=== PATIENT | male | born 1985 | race Caucasian/White ===

== ENCOUNTER 2018-01-07 14:19 | Inpatient (IN) | payer MEDICAID, SELFPAY ==
[2018-01-07 14:20] VITALS: BP 176/94; PULSE 103; RESP 16; TEMP 36.3; O2SAT 97; BMI 33.3
--- NOTE | 2018-01-07 14:39 | ED.VISSUMM ---
- ER Visit Summary Date of Service: 01/07/18 Chief Complaint: Repeat requesting detox for alcohol abuse History of Present Illness: The patient is a 32 M patient has a long-standing history of alcoholism. States he drinks about a pint of rum per day. And is requesting detox. He denies any hematemesis or melena. No other significant past medical history other than depression. Physical Examination: Well-appearing young male. Vital signs are stable afebrile. Heart rate 103. He does not look septic or toxic. H EENT exam unremarkable. Neck nontender. Lungs clear to auscultation bilaterally. Heart rhythm rate about 103 no murmur. Chest wall nontender. Abdomen soft, nontender nondistended normal bowel sounds no peritoneal signs. Moving all 4 extremities. Neurovascularly intact. Back nontender. Neurologically is awake and alert without focal motor deficits. Test Results: None Emergency Department Course and Treatment: I spoke to [facility] personnel they are coming down to evaluate the patient for admission. Treatment Plan: [] Disposition: Admission for detox Impression: Requesting detox for alcoholism This note was generated with [employer] dictation software. It may contain incorrect words, spelling, and punctuation that were not noted in review of the chart prior to signing ED Disposition - Plan for ED Patient: Chief Complaint: Subst Abuse Referrals: Vlad Leyva MD [Primary Care Provider] -
--- NOTE | 2018-01-07 14:45 | ED.DCSUM_ITS ---
- ER Visit Summary Date of Service: 01/07/18 Chief Complaint: Repeat requesting detox for alcohol abuse History of Present Illness: The patient is a 32 M patient has a long-standing history of alcoholism. States he drinks about a pint of rum per day. And is requesting detox. He denies any hematemesis or melena. No other significant past medical history other than depression. Physical Examination: Well-appearing young male. Vital signs are stable afebrile. Heart rate 103. He does not look septic or toxic. H EENT exam unremarkable. Neck nontender. Lungs clear to auscultation bilaterally. Heart rhythm rate about 103 no murmur. Chest wall nontender. Abdomen soft, nontender nondistended normal bowel sounds no peritoneal signs. Moving all 4 extremities. Neurovascularly intact. Back nontender. Neurologically is awake and alert without focal motor deficits. Test Results: None Emergency Department Course and Treatment: I spoke to [facility] personnel they are coming down to evaluate the patient for admission. Treatment Plan: [] Disposition: Admission for detox Impression: Requesting detox for alcoholism This note was generated with [employer] dictation software. It may contain incorrect words, spelling, and punctuation that were not noted in review of the chart prior to signing ED Disposition - Plan for ED Patient: Chief Complaint: Subst Abuse Referrals: Vlad Leyva MD [Primary Care Provider] -
[2018-01-07 15:10] VITALS: BMI 33.3
--- NOTE | 2018-01-07 15:32 | PCM.HP.STD ---
Problem List (1) Alcohol use disorder Status: Acute (2) Alcohol withdrawal Status: Acute History of Present Illness Date of Admission: 01/07/18 Chief Complaint: symptoms of alcohol withdrawal The patient is a 32 year old M history of alcohol use disorder, he drinks rum on a daily basis, affecting his life and he wants to stop alcohol completely. He last drank alcohol about 4 hours ago, is beginning to have symptoms of withdrawal with tremors anxiety restlessness and nausea. The patient denies use of illicit drugs. We are placing him in the hospital for medical stabilization of his symptom complex of alcohol withdrawal. Past Medical History Allergies No Known Allergies Allergy (Verified 04/01/14 13:40) Home Medications: Ambulatory Orders Medication Instructions Recorded Citalopram [Celexa] 20 mg PO DAILY 01/07/18 Surgical History: no surgical history Smoking Status: Current every day smoker Review of Systems Comment: All Systems were reviewed with pertinent positives mentioned in the HPI above. VTE Information - Inpt Only VTE Present on Admission: No VTE Mechan Device Prophylaxis: SCD's VTE Pharm Prophylaxis ordered?: No - Physical Exam General: Alert, Oriented x3 HEENT: Atraumatic Oral: Moist Mucosa Neck: Supple, No JVD Lungs: Clear to auscultation Cardiovascular: Regular rate, Normal S1, Normal S2 Abdomen: Bowel Sounds Present, Soft, Non Tender, Non-Distended Extremities: No edema Neurological: Cranial nerves II-XII grossly intact, Deep Tendon Reflexes 2+/4 and Symmetrical, Motor Exam 5/5 strength throughout Vital Signs Temp Pulse Resp BP Pulse Ox 97.4 F L 103 H 16 176/94 H 97 01/07/18 14:20 01/07/18 14:20 01/07/18 14:20 01/07/18 14:20 01/07/18 14:20 Oxygen Delivery Method Room Air Weight: 105.233 kg Body Mass Index (BMI) 33.3 Assessment/Plan 1. Early alcohol withdrawal; the patient will be placed on the [facility] medical stabilization protocol for alcohol withdrawal and we will continue to monitor him. closely. 2. alcohol Use disorder; the patient is recommended to follow-up for outpatient alcohol rehabilitation program after his discharge. 3. History of depressive disorder; he is on Celexa which we will continue. 4. Early ambulation for prophylaxis Code Visit Inpatient E&M: 32100 Init Hosp L2
[2018-01-07 16:19] VITALS: BP 156/92; PULSE 83; RESP 20; TEMP 36.9; O2SAT 96
[2018-01-07 16:21] VITALS: BMI 33.1
[2018-01-07 16:35] VITALS: BP 156/92; PULSE 83; RESP 20; TEMP 36.9; O2SAT 96
[2018-01-07] MEDS: QUEtiapine 25 MG Tablet PO (16:43)
[2018-01-07] MEDS: LORazepam 1 MG Tablet PO ×2 (16:43→20:54)
[2018-01-07 17:17] LABS: ALB/GLOB Ratio 1.2 RATIO (0.9-2.4); AST(SGOT) 31 U/L (15-37); Alanine Aminotransfer ALT/SGPT 40 U/L (16-61); Albumin, Serum 3.8 g/dL (3.2-5.0); Alkaline Phosphatase 48 U/L (45-117); Anion Gap 9 (5-15); BUN 21 mg/dL (7-18); BUN/Creat Ratio 18.4 RATIO (10-20); Calcium,Total 8.4 mg/dL (8.5-10.1); Chloride 110 mmol/L (98-107); Creatinine, Serum 1.14 mg/dL (0.70-1.30); EST Glomerular Filtration Rate 79 mL/min (>60); Est Glom Filt Rate - Afr Amer 96 mL/min (>60); Estimated Creatinine Clearance 96.94 ml/min; Globulin 3.2 g/dL (2.2-4.2); Glucose 98 mg/dL (74-106); Potassium 3.9 mmol/L (3.5-5.1); Sodium Level 141 mmol/L (136-145)
[2018-01-07] MEDS: cloNIDine HCl 0.1 MG Tablet PO ×2 (18:06→20:54)
[2018-01-07 20:50] VITALS: BP 149/83; PULSE 98; RESP 16; TEMP 36.5; O2SAT 96
[2018-01-07] MEDS: traZODone 50 MG Tablet PO (20:55)
[2018-01-08] VITALS (8 sets, daily range): BP systolic 110–154; BP diastolic 74–96; PULSE 61–79; RESP 16; TEMP 36.2–36.9; O2SAT 98–99
[2018-01-08] MEDS: cloNIDine HCl 0.1 MG Tablet PO ×5 (00:40→17:34)
[2018-01-08] MEDS: LORazepam 1 MG Tablet PO ×5 (00:40→17:34)
[2018-01-08] MEDS: Dicyclomine 10 MG Capsule 20 MG PO (00:40)
--- NOTE | 2018-01-08 07:44 | PCM.PROGNOTE ---
Subjective: Patient is a 32-year-old male with a past medical history of alcoholism, tobacco dependence and anxiety/depression who presented to the ED at [facility] on 01/07/2018 requesting inpatient admission for medical stabilization for alcohol withdrawal. Blood pressure at admission was 176/94. Heart rate was 103 and he was tremulous and c/o nausea. Alcohol level at admission was 103. LFTs were unremarkable. He has been to [facility] and to [facility]. He is a single parent now but gets support from his grandparents. Has never been to an in-pt rehab program. He is currently employed and his work is aware that he is at an alcohol rehab facility. He has 2 children and they are currently with the grandparents. He and his previously were both abusing narcotics in pill form and then he found her in bed with a co-worker 2 years ago and they are now . He still has a lot of anger associated with this. She has now moved on to heroin. He denies any narcotic use currently. Thinks he will go OP at [place], maybe with [facility] or [facility]. Mother and father were both drinkers Admits to feeling depressed....uses alcohol as an escape - Physical Exam General: Alert, Oriented x3, Cooperative, No apparent distress HEENT: Atraumatic, PERRLA, EOMI Oral: Moist Mucosa Neck: Supple, No Nodes, No Nuchal Rigidity Lungs: Clear to auscultation, Normal air movement Cardiovascular: Regular rate, No murmurs Abdomen: Bowel Sounds Present, Soft, Non Tender Extremities: No edema, Capillary Refill Less than 3 Seconds Skin: No rashes, No breakdown Musculoskeletal: No Tenderness to Palpation of Joints or Extremities Neurological: Cranial nerves II-XII grossly intact Psych/Mental Status: Flat Affect - but, makes good eye contact, no suicidal or homicidal ideation. Vital Signs Temp Pulse Resp BP Pulse Ox 97.2 F L 61 16 110/74 96 01/08/18 05:03 01/08/18 05:03 01/08/18 05:03 01/08/18 05:03 01/07/18 20:50 Oxygen Delivery Method Room Air Weight: 231 lb 1.6 oz Body Mass Index (BMI) 33.1 Laboratory Tests Past 24 Hrs 01/07/18 01/07/18 16:33 16:33 Sodium 141 Potassium 3.9 Chloride 110 H Carbon Dioxide 22.0 Anion Gap 9 BUN 21 H Creatinine 1.14 Estim Creat Clear Calc 96.94 Est GFR (MDRD) Af Amer 96 Est GFR (MDRD) Non-Af 79 BUN/Creatinine Ratio 18.4 Glucose 98 Calcium 8.4 L Total Bilirubin 0.30 AST 31 ALT 40 Alkaline Phosphatase 48 Total Protein 7.0 Albumin 3.8 Globulin 3.2 Albumin/Globulin Ratio 1.2 Ethyl Alcohol 103.0 Medical Necessity - Tobacco Use Smoking Status: Current every day smoker Assessment/Plan Impressions 1. acute alcohol withdrawal 2. depression - has not taken the Celexa he was prescribed by his PCP last week.....states he is afraid....but, agreeable to trying it in the hospital 3. hx of opiate abuse in the past....denies now Continue the [facility] protocol for acute alcohol withdrawal Start Celexa 20 mg p.o. daily today Consult behavioral health for options for counseling for severe depression Code Visit Inpatient E&M: 18127 Subs Hosp L2
--- NOTE | 2018-01-08 07:48 | PN_ITS ---
Subjective: Patient is a 32-year-old male with a past medical history of alcoholism, tobacco dependence and anxiety/depression who presented to the ED at [facility] on 01/07/2018 requesting inpatient admission for medical stabilization for alcohol withdrawal. Blood pressure at admission was 176/94. Heart rate was 103 and he was tremulous and c/o nausea. Alcohol level at admission was 103. LFTs were unremarkable. He has been to [facility] and to [facility]. He is a single parent now but gets support from his grandparents. Has never been to an in-pt rehab program. He is currently employed and his work is aware that he is at an alcohol rehab facility. He has 2 children and they are currently with the grandparents. He and his previously were both abusing narcotics in pill form and then he found her in bed with a co-worker 2 years ago and they are now . He still has a lot of anger associated with this. She has now moved on to heroin. He denies any narcotic use currently. Thinks he will go OP at [place], maybe with [facility] or [facility]. Mother and father were both drinkers Admits to feeling depressed....uses alcohol as an escape - Physical Exam General: Alert, Oriented x3, Cooperative, No apparent distress HEENT: Atraumatic, PERRLA, EOMI Oral: Moist Mucosa Neck: Supple, No Nodes, No Nuchal Rigidity Lungs: Clear to auscultation, Normal air movement Cardiovascular: Regular rate, No murmurs Abdomen: Bowel Sounds Present, Soft, Non Tender Extremities: No edema, Capillary Refill Less than 3 Seconds Skin: No rashes, No breakdown Musculoskeletal: No Tenderness to Palpation of Joints or Extremities Neurological: Cranial nerves II-XII grossly intact Psych/Mental Status: Flat Affect - but, makes good eye contact, no suicidal or homicidal ideation. Vital Signs Temp Pulse Resp BP Pulse Ox 97.2 F L 61 16 110/74 96 01/08/18 05:03 01/08/18 05:03 01/08/18 05:03 01/08/18 05:03 01/07/18 20:50 Oxygen Delivery Method Room Air Weight: 231 lb 1.6 oz Body Mass Index (BMI) 33.1 Laboratory Tests Past 24 Hrs 01/07/18 01/07/18 16:33 16:33 Sodium 141 Potassium 3.9 Chloride 110 H Carbon Dioxide 22.0 Anion Gap 9 BUN 21 H Creatinine 1.14 Estim Creat Clear Calc 96.94 Est GFR (MDRD) Af Amer 96 Est GFR (MDRD) Non-Af 79 BUN/Creatinine Ratio 18.4 Glucose 98 Calcium 8.4 L Total Bilirubin 0.30 AST 31 ALT 40 Alkaline Phosphatase 48 Total Protein 7.0 Albumin 3.8 Globulin 3.2 Albumin/Globulin Ratio 1.2 Ethyl Alcohol 103.0 Medical Necessity - Tobacco Use Smoking Status: Current every day smoker Assessment/Plan Impressions 1. acute alcohol withdrawal 2. depression - has not taken the Celexa he was prescribed by his PCP last week.....states he is afraid....but, agreeable to trying it in the hospital 3. hx of opiate abuse in the past....denies now Continue the [facility] protocol for acute alcohol withdrawal Start Celexa 20 mg p.o. daily today Consult behavioral health for options for counseling for severe depression Code Visit Inpatient E&M: 32938 Subs Hosp L2
[2018-01-08] MEDS: Folic Acid 1 MG Tablet PO (09:37)
[2018-01-08] MEDS: Thiamine Hydrochloride 100 MG Tablet PO (09:37)
[2018-01-08] MEDS: Multivitamins,Ther W-Minerals Tablet 1 TABLET PO (09:37)
[2018-01-08] MEDS: Citalopram 20 MG Tablet PO (09:47)
--- NOTE | 2018-01-08 11:07 | BH.NOTE ---
BH: Inpatient Note - Notes Behavioral Health Inpatient Note: 01/08/18 11:07 Referral to [facility] due to depression and anxiety. Met with pt in his room. Cooperative and pleasant. Denies any suicidal ideations, plan, or intent. No hx of suicide attempts or psychiatric admissions. [facility]mitted into the [facility] due to alcohol use disorder. Pt reports drinking on average a fifth of liquor daily for the past two years and would experience withdrawal symptoms. Admits that he would drink to self-medicate for depression, stress, and anxiety. Is currently linked with a therapist at [facility] and [facility]. Was recently started on Celexa for depression through PCP. Appears motivated for change. We discussed outpatient options at discharge. He is hesitant to participate in any type of group counseling however reports a plan to follow up with [facility] in [place] for group counseling. I'm unfamiliar with what substance abuse program he is discussing and its structure as [facility] does not have substance abuse groups. We discussed IOP treatment at [facility] as due to chronic significant use, limited sobriety, and limited relapse prevention skills an SA IOP would most likely be most beneficial however he prefers to stay closer to his house. Encouraged him to pursue IOP at discharge as well as follow up with his individual counselor. Left message with [facility] regarding consultation. 01/08/18 11:18 01/08/18 11:34
--- NOTE | 2018-01-08 22:48 | NURSING ---
See papercharting for MAR. HS meds given at 2130.
[2018-01-09] VITALS (7 sets, daily range): BP systolic 120–150; BP diastolic 74–91; PULSE 65–79; RESP 14–18; TEMP 36.5–37.1; O2SAT 95–98
[2018-01-09] MEDS: LORazepam 1 MG Tablet PO ×4 (00:17→20:27)
[2018-01-09] MEDS: cloNIDine HCl 0.1 MG Tablet PO ×5 (05:38→23:11)
--- NOTE | 2018-01-09 06:51 | PCM.PROGNOTE ---
Subjective: Afebrile, blood pressure mildly elevated, not tachycardic, not diaphoretic Admitted to that he is drinking a fifth a day rather than a pint(what he told me) and this has been ongoing for the past 2 years. Reviewed the consult from . Admitted to me today that prior to abusing alcohol he abused Percocet, Vicodin, Dilaudid tablets. He denies any intravenous drug use ever. He is considering going to an inpatient facility however wants to be discharged home to see his children. States he slept well last night. Denies nausea, tremulousness, restless leg, hallucinations. Objective: - Physical Exam General: Alert, Oriented x3, Cooperative, No apparent distress HEENT: Atraumatic, PERRLA, EOMI Oral: Moist Mucosa Neck: Supple, No Nodes, No Nuchal Rigidity Lungs: Clear to auscultation, Normal air movement Cardiovascular: Regular rate, No murmurs Abdomen: Bowel Sounds Present, Soft, Non Tender Extremities: No edema, Capillary Refill Less than 3 Seconds Skin: No rashes, No breakdown Musculoskeletal: No Tenderness to Palpation of Joints or Extremities Neurological: Cranial nerves II-XII grossly intact Psych/Mental Status: Flat Affect - but, makes good eye contact, no suicidal or homicidal ideation. More forthcoming today - Physical Exam Vital Signs Temp Pulse Resp BP Pulse Ox 97.7 F L 65 14 120/74 98 01/09/18 05:32 01/09/18 05:32 01/09/18 05:32 01/09/18 05:32 01/08/18 21:20 Oxygen Delivery Method Room Air Weight: 231 lb 1.6 oz Body Mass Index (BMI) 33.1 Intake and Output for Last 24 Hours 01/07/18 01/08/18 01/09/18 23:59 23:59 23:59 Intake Total 360 / 360 Balance 360 / 360 Medical Necessity - Tobacco Use Smoking Status: Current every day smoker Assessment/Plan Impressions 1. acute alcohol withdrawal 2. depression - has not taken the Celexa he was prescribed by his PCP last week.....states he is afraid....but, agreeable to trying it in the hospital. No adverse effects with the Celexa 3. hx of opiate abuse in the past....denies now Continue the [facility] protocol for acute alcohol withdrawal Continue Celexa 20 mg p.o. daily today Will provide him with a RX for Trazodone to help him sleep at night until the Celexa has a chance to kick in Plan on DC tomorrow Code Visit Inpatient E&M: 94841 Subs Hosp L2
[2018-01-09] MEDS: Multivitamins,Ther W-Minerals Tablet 1 TABLET PO (08:56)
[2018-01-09] MEDS: Thiamine Hydrochloride 100 MG Tablet PO (08:56)
[2018-01-09] MEDS: Folic Acid 1 MG Tablet PO (08:56)
[2018-01-09] MEDS: Citalopram 20 MG Tablet PO (09:33)
[2018-01-09] MEDS: Ibuprofen 600 MG Tablet PO (20:34)
[2018-01-09] MEDS: traZODone 100 MG Tablet PO (23:09)
[2018-01-10] VITALS (7 sets, daily range): BP systolic 106–139; BP diastolic 65–89; PULSE 59–88; RESP 12–18; TEMP 35.6–36.8; O2SAT 94–99
[2018-01-10] MEDS: LORazepam 1 MG Tablet PO ×2 (04:25→11:59)
--- NOTE | 2018-01-10 06:46 | NURSING ---
Reviewed Kimberly Bates RN charting.
--- NOTE | 2018-01-10 06:48 | PCM.DC ---
You will use the following diet at home:: No restrictions Your food should be the consistency of: Regular Your liquids should be the consistency of: Regular/Thin Discharge Activity: Return to Normal Activity Call your doctor if you observe: Fever of 101 or Higher Instructions: Why Do You Smoke?, Getting Support for Quitting Smoking, Depression Affects Your Mind and Body, What Can Cause Depression?, Depression: Tips to Help Yourself, Know the Signs and Symptoms of Depression, Using Antidepressants Additional Instructions: I think it is very important to get your anxiety and depression under control. Anxiety and depressions make you feel terrible and when you feel terrible you reach for ANYTHING that will comfort you and turn your brain off,,,,,for you this is alcohol. You have tolerated the Celexa OK in the hospital so I hope that you continue taking it. It sometimes takes 3-4 weeks to get the full effect of antidepressants like Celexa. Celexa is a SSRI. I am giving you some literature about taking antidepressants. I am also giving you a prescription for Trazodone to help you sleep at night until the Celexa kicks in. Trazodone is an antidepressant we frequently use only at night because one of the side effects is to make you sleepy and IT IS not ADDICTIVE. Good luck to you. I applaud your efforts to try and get healthy for both you and your children.....hang in there. Pending Tests on Discharge: none Allergies/Adverse Reactions: Allergies No Known Allergies Allergy (Verified 04/01/14 13:40) Medications to take at Discharge Citalopram [Celexa] 20 mg PO DAILY 01/07/18 Multivitamin [Daily Multiple Vitamin] 1 tablet PO DAILY 01/07/18 Nicotine [Nicoderm Cq] 21 mg TRANSDERM. DAILY #28 patch 01/10/18 traZODone [Desyrel] 100 mg PO QHS #30 tab 01/10/18 The following prescriptions were given: Nicotine [Nicoderm Cq] 21 mg TRANSDERM. DAILY #28 patch traZODone [Desyrel] 100 mg PO QHS #30 tab Primary Care Physician: Vlad Leyva MD [NON-STAFF] - Please follow up with your Primary Care Physician in: as needed
--- NOTE | 2018-01-10 07:01 | PCM.DC.SUM ---
Discharge Date and Diagnosis Date of Admission: 01/07/18 Date of Discharge: 01/10/18 - Primary Discharge Diagnosis Alcohol withdrawal - acute - Secondary Discharge Diagnosis Chronic Problems Anxiety and depression (Chronic) Tobacco dependence due to cigarettes (Chronic) Alcohol use disorder (Chronic) Remote hx of oral narcotic abuse Hospital Course and Treatment Imaging Results: Laboratory Tests 01/07/18 01/07/18 16:33 16:33 Sodium 141 Potassium 3.9 Chloride 110 H Carbon Dioxide 22.0 Anion Gap 9 BUN 21 H Creatinine 1.14 Estim Creat Clear Calc 96.94 Est GFR (MDRD) Af Amer 96 Est GFR (MDRD) Non-Af 79 BUN/Creatinine Ratio 18.4 Glucose 98 Calcium 8.4 L Total Bilirubin 0.30 AST 31 ALT 40 Alkaline Phosphatase 48 Total Protein 7.0 Albumin 3.8 Globulin 3.2 Albumin/Globulin Ratio 1.2 Ethyl Alcohol 103.0 none Operations: None Procedures: None Summary of Care Provided: Patient is a 32-year-old male with a past medical history of alcoholism, tobacco dependence and anxiety/depression who presented to the ED at [facility] on 01/07/2018 requesting inpatient admission for medical stabilization for alcohol withdrawal. Blood pressure at admission was 176/94. Heart rate was 103 and he was tremulous and c/o nausea. Alcohol level at admission was 103. LFTs were unremarkable. He was admitted to the hospital and the [facility] protocol for alcohol withdrawal was initiated. He had recently gotten a Prescription for Celexa from his PCP but, had not started taking it yet. He received Celexa in the hospital with no adverse reaction. He was seen by Grzegorz Villegas from and was given resources to follow up with for treatment af anxiety and depression. He is a single parent with 2 small children and is very overwhelmed. Fortunately his grandparents are very supportive. The hospital course was uneventful. He was to be discharged on 01/10/18 however there was no plan in place for rehab post DC and he was afraid he would go home and drink. He was kept in the hospital on 01/10 so that he could meet with the [facility] rep on 01/11 and nail down plans for rehab prior to being discharged. He was given a RX for Trazodone 100 mg at DC to help with insomnia. He had a good response to this in the hospital. This note was generated with Dragon dictation software. It may contain incorrect words, spelling, and punctuation that were not noted in checking the note before signing. Discharge Activity: Return to Normal Activity Call your doctor if you observe: Fever of 101 or Higher Home Medications: Medications to take at Discharge Citalopram [Celexa] 20 mg PO DAILY 01/07/18 Multivitamin [Daily Multiple Vitamin] 1 tablet PO DAILY 01/07/18 Nicotine [Nicoderm Cq] 21 mg TRANSDERM. DAILY #28 patch 01/10/18 traZODone [Desyrel] 100 mg PO QHS #30 tab 01/10/18 Following Prescrptions Were Given to Patient: Nicotine [Nicoderm Cq] 21 mg TRANSDERM. DAILY #28 patch traZODone [Desyrel] 100 mg PO QHS #30 tab Primary Care Physician: Vlad Leyva MD [NON-STAFF] - Please follow up with your Primary Care Physician in: as needed Patient Instructions: Depression Affects Your Mind and Body, What Can Cause Depression?, Depression: Tips to Help Yourself, Know the Signs and Symptoms of Depression, Why Do You Smoke?, Getting Support for Quitting Smoking, Using Antidepressants Medical Necessity - Tobacco Use Smoking Status: Current every day smoker Meaningful Use Info Meaningful Use Diagnoses (Choose all that apply): None applicable Code Visit Inpatient E&M: 87711 Disch Hosp
[2018-01-10] MEDS: Multivitamins,Ther W-Minerals Tablet 1 TABLET PO (09:28)
[2018-01-10] MEDS: cloNIDine HCl 0.1 MG Tablet PO ×4 (09:28→22:25)
[2018-01-10] MEDS: Thiamine Hydrochloride 100 MG Tablet PO (09:28)
[2018-01-10] MEDS: Folic Acid 1 MG Tablet PO (09:28)
[2018-01-10] MEDS: Citalopram 20 MG Tablet PO (09:29)
[2018-01-10] MEDS: traZODone 100 MG Tablet PO (22:23)
[2018-01-11 02:15] VITALS: BP 127/83; PULSE 63; RESP 16; TEMP 35.9; O2SAT 96
[2018-01-11 05:36] VITALS: BP 120/76; PULSE 90; RESP 18; TEMP 36.6
[2018-01-11] MEDS: cloNIDine HCl 0.1 MG Tablet PO (05:36)
--- NOTE | 2018-01-11 07:28 | NUR.TO.PHY ---
Agreed with VANNA Harris documentations.
--- NOTE | 2018-01-11 07:49 | NURSING ---
Addendum entered by Ángela Lewis 01/11/18 09:08: to come see patient and did so this AM. She states that patient is ready to be d/c'ed whenever physician is ready. Original Note: Addendum entered by Ángela Lewis 01/11/18 09:07: Avis with [facility] states that patient already had options of inpatient vs. outpatient discharge options on Thursday. However, she did agree Original Note: This RN called [facility] this AM and left message notifying them that patient is requesting outpatient therapy as opposed to inpatient that was discussed prior to weekend. Dr. Yun updated regarding same.
[2018-01-11 08:26] VITALS: RESP 16
--- NOTE | 2018-01-11 08:27 | NURSING ---
Nurse talks with [facility], regarding reported change in d/c plan and pt's reported desire to go to residential program instead of outpatient program. Avis to come to floor to talk with patient.
[2018-01-11 08:30] VITALS: BP 143/93; PULSE 60; RESP 16; TEMP 36.4; O2SAT 98
[2018-01-11] MEDS: Multivitamins,Ther W-Minerals Tablet 1 TABLET PO (08:34)
[2018-01-11] MEDS: Folic Acid 1 MG Tablet PO (08:35)
[2018-01-11] MEDS: Thiamine Hydrochloride 100 MG Tablet PO (08:35)
[2018-01-11] MEDS: Ibuprofen 600 MG Tablet PO (08:41)
[2018-01-11] MEDS: Citalopram 20 MG Tablet PO (09:36)
== END 2018-01-11 10:10 | disposition home or self-care (01) | DRG 435 ==
LOC: ED 15:48 → MS2 15:56
PROVIDERS: Admitting Provider Internal Medicine; Emergency Provider Emergency Medicine; Visit Provider Family Medicine
DX: F10.239 Alcohol dependence with withdrawal, unspecified (principal); F11.11 Opioid abuse, in remission; Y90.5 Blood alcohol level of 100-119 mg/100 ml; F32.9 Major depressive disorder, single episode, unspecified; F41.9 Anxiety disorder, unspecified; F17.210 Nicotine dependence, cigarettes, uncomplicated; Z79.899 Other long term (current) drug therapy
CPT/HCPCS: 36415; 80053; 80320; 99282; G0480

== ENCOUNTER 2019-10-23 14:38 | Emergency (ER) | payer MEDICAID, SELFPAY ==
[2019-10-23 14:40] VITALS: BP 166/93; PULSE 114; RESP 18; TEMP 36.6; O2SAT 99; BMI 32.3
[2019-10-23 14:58] VITALS: RESP 16
--- NOTE | 2019-10-23 15:23 | ED.DCSUM_ITS ---
- ER Visit Summary Date of Service: 10/23/19 Chief Complaint: Left long finger injury History of Present Illness: The patient is a 34 M significant past medical history. He is right-hand dominant. He states on Thursday he fell injuring his left long finger. No prior history of surgery of that hand. Denies any other injuries. Physical Examination: Young healthy male no acute distress vital signs are stable afebrile. Initial heart rate 144 on my exam his heart rate 90. HEENT exam unremarkable atraumatic. C-spine nontender. Lungs clear to auscultation. Heart regular rhythm rate about 90. Chest nontender. Abdomen soft nontender. Extremities moves all 4. Left hand left long finger is bruised and swollen. He has decreased flexion due to pain. But is able to do thumb flexion. He has full extension. There is no gross bony deformity. Otherwise the other fingers and palm and thumb of his left hand are unremarkable. Nontender nonswollen and non-bruised. Rest of the exam is otherwise unremarkable. Test Results: X-ray left long finger 2 views read by myself shows no acute abnormality. No fracture or dislocation. Emergency Department Course and Treatment: Left long finger injury will need x- ray. Treatment Plan: Alumifoam finger splint. Arm x-rays with him. Ice and Motrin for pain and swelling. Follow-up if not improving. Disposition: Discharge Impression: Acute left long finger contusion This note was generated with [employer] dictation software. It may contain incorrect words, spelling, and punctuation that were not noted in review of the chart prior to signing ED Disposition - Plan for ED Patient: Referrals: Care Physician,No Primary [Primary Care Provider] -
--- NOTE | 2019-10-23 15:35 | RAD_ITS ---
STUDY: X-RAY - LEFT HAND, ATTENTION FOURTH FINGER REASON FOR EXAM: Male, 34 years old. PT INJURED LT 4TH DIGIT WRESTLING, PAIN THROUGH ENTIRE FINGER TECHNIQUE: 3 view(s) of the finger were obtained. COMPARISON: None. FINDINGS: Normal metacarpal head. Normal metacarpophalangeal joint. Normal proximal phalanx. There is a small bony density along the volar base of the third middle phalanx. Normal distal phalanx. Normal proximal interphalangeal joint. Normal distal interphalangeal joint. There is soft tissue swelling of the fourth digit. RAD/Finger(s) Min 2 Views IMPRESSION: Hyperextension avulsion fracture at the base of the third middle phalanx. Electronically Signed: Souleymane Browning MD (Brooks) at 16:16 EST , Service support ,
--- NOTE | 2019-10-23 15:57 | ED.DEP ---
ED Disposition - Plan for ED Patient: Disposition: Home or Assisted Living Instructions: CONTUSION, Upper Extremity Referrals: Ward Boudreaux MD [STAFF PHYSICIAN] - 1 Week if not improving Additional Instructions: Elevate your finger. Motrin for pain and swelling.
[2019-10-23 16:06] VITALS: RESP 16
== END 2019-10-23 16:07 | disposition home or self-care (01) ==
PROVIDERS: Emergency Provider Emergency Medicine
DX: S60.032A Contusion of left middle finger without damage to nail, initial encounter (principal); W19.XXXA Unspecified fall, initial encounter; Y93.72 Activity, wrestling; Z72.0 Tobacco use
CPT/HCPCS: 73140; 99282

== ENCOUNTER → 2021-01-30 16:27 | Outpatient (CLI) | payer MEDICAID, SELFPAY ==
[2021-01-30 16:21] VITALS: BMI 32.3
--- NOTE | 2021-01-30 16:29 | RAD_ITS ---
STUDY: X-RAY CHEST REASON FOR EXAM: Male, 35 years old. anterior chest wall/ xyphoid process pain TECHNIQUE: 2 COMPARISON: None. FINDINGS: The lungs are clear and expanded. There is no demonstrated pleural abnormality. Normal size heart. Normal mediastinum and simon. Normal visualized pulmonary arteries. Normal visualized aortic arch and descending thoracic aorta. Normal visualized thoracic spine. Normal visualized ribs, clavicles, and shoulders. There is no demonstrated abnormality of the visualized soft tissue structures of the upper abdomen. RAD/Chest PA and Lateral IMPRESSION: Normal x-ray examination of the chest. Electronically Signed: Dolly Moreno MD at 17:12 EDT , Service support ,
== END ==
PROVIDERS: Referring Provider Physician Assistant; Visit Provider Physician Assistant
DX: R07.89 Other chest pain (principal)
CPT/HCPCS: 71046

== ENCOUNTER → 2021-06-05 | Outpatient (CLI) | payer MEDICAID, SELFPAY | END | disposition home or self-care (01) | LOC: LABSPEC 06-06 10:07 | PROVIDERS: Visit Provider Physician Assistant | DX: Z20.822 Contact with and (suspected) exposure to COVID-19 (principal) | CPT/HCPCS: 87635; U0005; U0003 ==

== ENCOUNTER 2022-05-19 06:03 | Emergency (ER) | payer MEDICAID, SELFPAY ==
[2022-05-19 06:04] VITALS: BP 165/106; PULSE 72; RESP 15; TEMP 36.4; O2SAT 97; BMI 29.0
--- NOTE | 2022-05-19 06:11 | ED.VIS.BACK ---
HPI History of Present Illness Chief Complaint: Back Informant: patient Onset/Context/Timing Onset: Days (3) Context: - (Awoke with pain) Timing: Continuous Quality: Aching Location: Lumbar (Left) and Left Leg (Thigh posteriorly) Current Severity: Moderate Maximum Severity: Severe Worsened by: improves with Movement, Ambulation and Bending Relieved by: Remaining Still Associated Symptoms Associated Symptoms: Radiation to Left Leg; Negative for Numbness, Tingling, Radiation to Right Leg, Abdominal Pain, Unable to Ambulate, Unable to Transfer, Urinary Retention, Urinary Incontinence, Constipation or Fecal Incontinence Narrative Narrative: 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 Then he was riding on a golf cart over and over at a campground this past weekend, the next morning he woke up in severe low back pain radiating into his left posterior thigh. Nothing that radiates below the knee. No bowel or bladder dysfunction. No numbness or tingling. [facility] Medical History Encounter for screening for COVID-19 Xyphoidalgia Home Medications citalopram 20 mg tablet 20 mg PO DAILY ANXIETY/DEPRESSION 01/07/18 [History Last Taken Unknown] multivitamin (Daily Multiple tablet) 1 tab PO DAILY 01/07/18 [History Last Taken Unknown] cyclobenzaprine 10 mg tablet 10 mg PO TID PRN Muscle Spasm #20 TABLETS 05/19/22 [Rx Last Taken Unknown] naproxen 500 mg tablet 500 mg PO BID PRN #20 tabs 05/19/22 [Rx Last Taken Unknown] Allergy/AdvReac Type Severity Reaction Status Date / Time No Known Allergies Allergy Verified 05/19/22 06:10 Social History Smoking Status: Current every day smoker tobacco type: cigarettes ROS ROS ED Constitutional Constitutional ED: Denies chills or fever(s) Gastrointestinal Gastrointestinal: Denies abdominal pain, constipation, fecal incontinence, nausea or vomiting Genitourinary Genitourinary ED: Reports other Details: no urinary retention ; Denies abdominal discomfort or urinary incontinence Musculoskeletal Musculoskeletal: Reports as per HPI and back pain; Denies neck pain Integumentary Denies rash or wounds Neurologic Neurologic: Denies headache(s), paresthesias or weakness EXAM Physical Exam Const Vital Signs: 05/19/22 06:04 Temperature 97.6 F L Temperature Source Temporal Pulse Rate 72 Respiratory Rate 15 Blood Pressure 165/106 H Blood Pressure Mean 125 Pulse Ox 97 Oxygen Delivery Method Room Air Positive well nourished and well developed General Appearance ED: well developed and NAD HEENT Negative for trauma or tenderness Eyes PERRL and EOMs intact bilaterally Neck full ROM and supple GI normal to inspection, nondistended, normoactive bowel sounds, soft to palpation and non-tender Back/Spine normal to inspection Back/Spine Narrative: Patient asked me to stop ipsilateral straight leg raise at only about 10 or 15 degrees of flexion, so evaluation is limited but he does not develop radicular symptoms. Negative cross leg straight leg raise. Lumbar Spine / Lower Back: ROM limited, paraspinal muscle tenderness and straight leg raise negative bilaterally; Negative for lumbar spinal tenderness Extremity normal to inspection, full ROM and no pedal edema Neuro oriented x3 and no sensory deficits noted Sensorium / Orientation: alert Motor Exam: strength 5/5 throughout and clonus absent Deep Tendon Reflexes: Rt Patellar (L4): 2+, Lt Patellar (L4): 2+, Rt Ankle (S1): 2+ and Lt Ankle (S1): 2+ Deep Tendon Reflexes Back: Rt Patellar (L4): 2+, Lt Patellar (L4): 2+, Rt Ankle (S1): 2+ and Lt Ankle (S1): 2+ Plantar Reflex: Downgoing: bilateral Psych mental status grossly normal and thought process normal Skin no rashes or lesions noted and no wounds MDM MDM MDM Narrative Medical decision making narrative: Based on the history I do not think this patient needs any x-rays. There is no midline tenderness. His tenderness is left lumbosacral, in the area of the SI joint which is in the differential as well as a simple strain, and I am not able to rule out the possibility of a disc issue. At this time supportive care is advised, he was given an injection of Toradol and Norflex and prescribed Naprosyn and Flexeril. He is asking for a work note for today, he presents at 6 AM and needs to be at work at 7 so he was given a work note for today. Discharge Plan Triage Chief Complaint: Back ED Provider: Abraham Carter Dx/Rx/DC Orders Clinical Impression: Acute low back pain Instructions: ED Back Pain (Acute or Chronic), ED Sacroiliitis Prescriptions: New cyclobenzaprine [cyclobenzaprine] 10 mg tablet 10 mg PO TID PRN (Reason: Muscle Spasm) Qty: 20 0RF naproxen 500 mg tablet 500 mg PO BID PRN Qty: 20 0RF No Action citalopram 20 MG tablet 20 mg PO DAILY Rx Instructions: PRESCRIBED, BUT NOT STARTED multivitamin [Daily Multiple] 1 EACH tablet 1 tab PO DAILY Stand Alone Forms: ED Work / School Excuse Referrals: Doctor,Your [Non-Staff] - 1 Week if not improving Disposition Disposition: Home, Self Care
[2022-05-19 06:24] VITALS: BP 133/100; PULSE 70; RESP 17; O2SAT 97
== END 2022-05-19 06:25 | disposition home or self-care (01) ==
LOC: ED 06:17
PROVIDERS: Emergency Provider Emergency Medicine; Visit Provider Emergency Medicine
DX: M54.50 Low back pain, unspecified (principal); F17.210 Nicotine dependence, cigarettes, uncomplicated
CPT/HCPCS: 96372; 99282

== ENCOUNTER 2022-05-21 07:03 | Emergency (ER) | payer MEDICAID, SELFPAY ==
[2022-05-21 07:03] VITALS: BP 141/99; PULSE 72; RESP 16; TEMP 36.4; O2SAT 100; BMI 29.7
--- NOTE | 2022-05-21 07:31 | ED.VIS.BACK ---
HPI History of Present Illness Chief Complaint: Back Informant: patient Onset/Context/Timing Context: Gradual Onset Timing: Continuous Location: Buttock and Left Leg Current Severity: Mild Maximum Severity: Moderate Worsened by: improves with Movement and Bending Relieved by: Remaining Still Associated Symptoms Associated Symptoms: Radiation to Left Leg; Negative for Fever, Unable to Ambulate, Urinary Retention, Urinary Incontinence, Constipation or Fecal Incontinence Narrative Narrative: [id number] male complaining of left-sided sciatica. Was seen 2 days ago started on naproxen and muscle relaxant. He denies any falls. No fever. No prior back history. No prior back surgery. Prior similar symptoms: Yes Recent Illness/Hospitalization: No [facility] Medical History Encounter for screening for COVID-19 Xyphoidalgia Home Medications citalopram 20 mg tablet 20 mg PO DAILY ANXIETY/DEPRESSION 01/07/18 [History Last Taken Unknown] multivitamin (Daily Multiple tablet) 1 tab PO DAILY 01/07/18 [History Last Taken Unknown] cyclobenzaprine 10 mg tablet 10 mg PO TID PRN Muscle Spasm #20 TABLETS 05/19/22 [Rx Last Taken Unknown] naproxen 500 mg tablet 500 mg PO BID PRN #20 tabs 05/19/22 [Rx Last Taken Unknown] Allergy/AdvReac Type Severity Reaction Status Date / Time No Known Allergies Allergy Verified 05/19/22 06:10 Social History Smoking Status: Current every day smoker tobacco type: cigarettes ROS ROS ED ROS Narrative Left lower back pain radiating to his leg. No other symptoms. No weakness. No numbness. Review of Systems ROS Unobtainable: Denies due to encephalopathy Constitutional Constitutional ED: Denies chills or fever(s) Eyes Eyes: Denies blurry vision ENT ENT ED: Denies ear pain Cardiovascular Cardiovascular: Denies chest pain Respiratory/Chest Respiratory/Chest: Denies dyspnea Gastrointestinal Gastrointestinal: Denies abdominal pain Genitourinary Genitourinary ED: Denies dysuria Musculoskeletal Musculoskeletal: Denies arthralgias Integumentary Denies abscess Neurologic Neurologic: Denies headache(s) Psychiatric Psychiatric: Denies anxiety Endocrine Endocrinology: Denies cold intolerance Hematologic/Lymphatic Hematologic/Lymphatic: Denies easy bleeding Allergic/Immunologic Allergic/Immunologic ED: Denies mouth swelling or tongue swelling EXAM Physical Exam Narrative Exam Narrative: 36-year-old male no acute distress vital signs stable afebrile. HEENT exam unremarkable. Neck nontender. Lungs are clear. Heart regular rhythm. Abdomen soft nontender. Back nontender. Spine nontender. Left SI joint no reproducible tenderness. Positive straight leg raise test on the left about 40 degrees. Negative on the right. Normal sensation in both medial thighs and lower legs. Bilaterally. Normal 5-5 dorsi and plantar flexion. Neurologic exam unremarkable no focal motor or sensory deficits. Exam consistent with left-sided sciatica. Const Vital Signs: 05/21/22 07:03 Temperature 97.6 F L Temperature Source Oral Pulse Rate 72 Respiratory Rate 16 Blood Pressure 141/99 H Blood Pressure Mean 113 Pulse Ox 100 Oxygen Delivery Method Room Air Positive well nourished and well developed; Negative for obese, cachectic, contractures or unkempt General Appearance ED: well developed and NAD; Negative for unkempt, cachectic or contractures Nutritional Appearance: Negative for cachectic or obese HEENT Reports moist mucous membranes Negative for trauma Eyes PERRL and EOMs intact bilaterally General Eye ED: Negative for pale conjunctiva or scleral icterus Neck no lymphadenopathy, supple and no JVD General: Negative for tenderness Thyroid: Negative for other Resp normal respiratory effort and clear to auscultation bilaterally Effort and Inspection: Negative for pain with movement Auscultation: Negative for rales, rhonchi or wheezes Cardio regular rate, regular rhythm, S1 normal heart sound, S2 normal heart sound and no murmurs Palpation: Negative for palpable S3 Rate: Negative for bradycardia Rhythm: Negative for abnormal rhythm Bruits: Negative for other GI normal to inspection, nondistended, normoactive bowel sounds, soft to palpation, non-tender, non-distended and no masses Inspection: Negative for abdominal distention Auscultation: Negative for hyperactive bowel sounds Palpation: Negative for tender or guarding Back/Spine normal to inspection and no thoracic nor lumbar tenderness General Back: Negative for CVA tenderness Cervical Spine: Negative for cervical spine tenderness Thoracic Spine / Upper Back: Negative for paraspinal muscle tenderness Lumbar Spine / Lower Back: Negative for ROM limited Extremity normal to inspection and no clubbing, cyanosis or edema General Extremety ED: Negative for edema or tenderness General Extremity: Negative for edema Neuro oriented x3 Sensorium / Orientation: alert; Negative for confused, lethargic or stuporous Sensory Exam: No other Motor Exam: strength 5/5 throughout; Negative for strength abnormal Psych mental status grossly normal Appearance: Negative for unkempt Attitude: No agitated Mood & Affect: Negative for depressed, sad or tearful Skin no rashes or lesions noted and no wounds General Skin Exam: Negative for jaundice Lesions: No lesion noted Rashes: No rashes noted Trauma: Negative for abrasion or puncture Wounds: Negative for wounds noted MDM MDM MDM Narrative Medical decision making narrative: 36-year-old male examined history consistent with left sciatica. No signs of cauda equina. No weakness. No loss of sensation. Imaging not necessary at this time. Continue his naproxen. Ice to the area. Follow-up if not improving with his primary care physician. Discharge Plan Triage Chief Complaint: Back ED Provider: Alonzo Ratliff Dx/Rx/DC Orders Clinical Impression: Sciatica Instructions: ED Sciatica Prescriptions: No Action citalopram 20 MG tablet 20 mg PO DAILY Rx Instructions: PRESCRIBED, BUT NOT STARTED multivitamin [Daily Multiple] 1 EACH tablet 1 tab PO DAILY cyclobenzaprine [cyclobenzaprine] 10 mg tablet 10 mg PO TID PRN (Reason: Muscle Spasm) Qty: 20 0RF naproxen 500 mg tablet 500 mg PO BID PRN Qty: 20 0RF Primary Care Provider: Care Physician,No Primary Referrals: Care Physician,No Primary [Primary Care Provider] - Activity Restrictions/Additional Instructions: Continue your anti-inflammatory naproxen twice a day. Ice to your left sciatic area. 30 minutes at a time at least 3 times a day. Follow-up with your primary care physician if not improving. Disposition Disposition: Home, Self Care
[2022-05-21 07:43] VITALS: BP 124/95; PULSE 68; RESP 16; O2SAT 98
== END 2022-05-21 07:45 | disposition home or self-care (01) ==
LOC: ED 07:40
PROVIDERS: Emergency Provider Emergency Medicine; Visit Provider Emergency Medicine
DX: M54.32 Sciatica, left side (principal); F17.210 Nicotine dependence, cigarettes, uncomplicated
CPT/HCPCS: 99282

== ENCOUNTER 2022-06-04 07:10 | Emergency (ER) | payer MEDICAID, SELFPAY ==
[2022-06-04 07:10] VITALS: BP 137/99; PULSE 85; RESP 14; TEMP 36.2; O2SAT 97; BMI 28.7
--- NOTE | 2022-06-04 07:22 | ED.VIS.BACK ---
HPI History of Present Illness Chief Complaint: Back Narrative Narrative: Patient presents as for his third visit for left-sided low back pain radiating down to his left hip. He has been seen in the emergency department twice. He states he followed up with a chiropractor twice. He is out of naproxen, and tries to take cyclobenzaprine at night. This morning, he has acute exacerbation of his left low back pain that has had for 3 weeks. He denies any fevers or chills. No nausea or vomiting. No saddle anesthesia. He denies any loss of bowel or bladder, or other symptoms. Pain is worse with movement. He states the chiropractor tried to pop his left hip but he still has pain that radiates towards his left thigh. This has been ongoing for the last 3 weeks. It is the same pain he presented to the emergency department for twice already. No recent trauma or injury to his back. He states he bought an inversion table, and has been using a massage gun to his left low back. [facility] Medical History Encounter for screening for COVID-19 Xyphoidalgia Home Medications citalopram 20 mg tablet 20 mg PO DAILY ANXIETY/DEPRESSION 01/07/18 [History Last Taken Unknown] multivitamin (Daily Multiple tablet) 1 tab PO DAILY 01/07/18 [History Last Taken Unknown] cyclobenzaprine 10 mg tablet 10 mg PO TID PRN Muscle Spasm #20 TABLETS 05/19/22 [Rx Last Taken Unknown] naproxen 500 mg tablet 500 mg PO BID PRN #20 tabs 05/19/22 [Rx Last Taken Unknown] methylprednisolone 4 mg tablets in a dose pack (Medrol (Pablo)) 4 mg PO DAILY #21 tabs 06/04/22 [Rx Last Taken Unknown] Allergy/AdvReac Type Severity Reaction Status Date / Time No Known Allergies Allergy Verified 06/04/22 07:10 Social History Smoking Status: Current every day smoker tobacco type: cigarettes ROS ROS ED ROS Narrative Constitutional: No fever, no chills. HEENT: No sore throat. No neck pain. No loss of vision. No rhinorrhea. Cardiovascular: No chest pain. No palpitations. No pedal edema. Respiratory: No cough, no shortness of breath. Abdominal: No abdominal pain. No nausea. No vomiting. Genitourinary: No dysuria. No hematuria. Musculoskeletal: No myalgias. Left hip and thigh pain. Left low back pain. Neurologic: No headaches. No dizziness. No lightheadedness. No saddle anesthesia. No loss of bowel or bladder. Skin: No rash. No change in color. Psychiatric: No depression. No anxiety. EXAM Physical Exam Narrative Exam Narrative: Afebrile. Vital signs noted. HEENT: Normocephalic. Atraumatic. PERRL, EOMI. Neck soft and supple. No point tenderness or step off. Cardiovascular: Regular rate and rhythm. No murmurs, rubs, or gallops appreciated. Respiratory: No tachypnea. Lungs clear to auscultation bilaterally. Gastrointestinal: Abdomen soft, nontender, with normoactive bowel sounds. No rebound or guarding. Neurological: Awake. Alert. Nonfocal, nonlateralizing. DTRs equal and symmetric. Neuro vastly intact bilateral lower extremities. EHL intact bilaterally. Tightness in back with movement of left leg. Skin: No rash. Normal color. No pallor. Musculoskeletal: No pedal edema. Full range of motion extremities. Const Vital Signs: 06/04/22 07:10 Temperature 97.1 F L Temperature Source Temporal Pulse Rate 85 Respiratory Rate 14 Blood Pressure 137/99 H Blood Pressure Mean 111 Pulse Ox 97 Oxygen Delivery Method Room Air MDM MDM MDM Narrative Medical decision making narrative: I reviewed the patient's prior records. On his 2 visits, the last being approximately 2 weeks ago, imaging was not performed. He states his chiropractor did not perform x-rays of his low lumbar spine. Given that this is his third visit, I will obtain x-rays. I do feel that as he is out of naproxen and has not been taking it, that he would might benefit from a Medrol Dosepak/prednisone burst. He states he has follow-up with his primary care provider tomorrow. He was told he may require physical therapy. X-rays of the lumbar spine interpreted by myself shows no evidence of fracture or significant disc space narrowing. Noted scoliosis. At this point in time, I feel he can be discharged safely home with follow-up. He states he is out of naproxen, but it was ineffective. I do feel that he may benefit from a Medrol Dosepak. He is not a diabetic. He was given a note to be off work today and tomorrow so that he can follow-up with his primary care provider with whom he has an appointment tomorrow. Disposition is discharged home in stable condition. Radiography Diagnostic Testing: Clinical Impression(s) from Imaging Studies Lumbar Spine X-Ray 06/04/22 07:30 IMPRESSION: There is a levoscoliosis of the lumbar spine. Electronically Signed: Lakhwinder Elena MD at 7:44 EDT Reading Location ID and State: [facility] / [place] Tel , Service support , Discharge Plan Triage Chief Complaint: Back ED Provider: Minh Prado Dx/Rx/DC Orders Clinical Impression: Sciatica of left side, Lumbar back pain Instructions: ED Back Pain (Acute or Chronic), ED Sciatica Prescriptions: New methylprednisolone [Medrol (Pablo)] 4 mg tablets,dose pack 4 mg PO DAILY Qty: 21 0RF Rx Instructions: Take tapering Dosepak as directed No Action citalopram 20 MG tablet 20 mg PO DAILY Rx Instructions: PRESCRIBED, BUT NOT STARTED multivitamin [Daily Multiple] 1 EACH tablet 1 tab PO DAILY cyclobenzaprine [cyclobenzaprine] 10 mg tablet 10 mg PO TID PRN (Reason: Muscle Spasm) Qty: 20 0RF naproxen 500 mg tablet 500 mg PO BID PRN Qty: 20 0RF Stand Alone Forms: ED Work / School Excuse Primary Care Provider: Care Physician,No Primary Referrals: Care Physician,No Primary [Primary Care Provider] - Activity Restrictions/Additional Instructions: Follow-up with your primary care physician tomorrow as scheduled. You have been given a note for work for today and for tomorrow so that you can follow-up with your primary care physician tomorrow. Disposition Disposition: Home, Self Care
--- NOTE | 2022-06-04 07:30 | RAD_ITS ---
STUDY: X-RAY - LUMBAR SPINE REASON FOR EXAM: Male, 36 years old. pain TECHNIQUE: 3 view(s) of the lumbar spine were obtained. COMPARISON: None FINDINGS: Normal lumbar lordosis. There is a levoscoliosis of the lumbar spine. There is a normal alignment of the vertebrae. Normal vertebral bodies and endplates. Normal disc space heights. The soft tissue structures are unremarkable. RAD/Lumbar Spine 2 or 3 Views IMPRESSION: There is a levoscoliosis of the lumbar spine. Electronically Signed: Lakhwinder Elena MD at 7:44 EDT ,
== END 2022-06-04 08:02 | disposition home or self-care (01) ==
PROVIDERS: Emergency Provider Emergency Medicine; Visit Provider Emergency Medicine
DX: M54.42 Lumbago with sciatica, left side (principal); F17.210 Nicotine dependence, cigarettes, uncomplicated
CPT/HCPCS: 72100; 99282